=== PATIENT | male | born 2000 | race Two or more races ===

== ENCOUNTER 2019-04-06 16:19 | Emergency (ER) | payer SELFPAY ==
[~2019-04-06] VITALS: Ht 172.7 cm; Wt 68.0 kg
[2019-04-06] MEDS ORDERED: ETOMIDATE (2MG/ML) 20ML VIAL IV ONE (17:15)
[2019-04-06] MEDS ORDERED: ceFAZolin 1GM/50ML 50 ML IV ONE (19:00)
[2019-04-06 20:31] VITALS: BP 132/68
== END 2019-04-06 21:23 | disposition short-term general hospital (02) ==
LOC: EDBD 16:19 → ER 16:25
DX: S53.105A Unspecified dislocation of left ulnohumeral joint, initial encounter (principal); S52.92XB Unspecified fracture of left forearm, initial encounter for open fracture type I or II; V86.56XA Driver of dirt bike or motor/cross bike injured in nontraffic accident, initial encounter; Y93.89 Activity, other specified; Y99.8 Other external cause status; Y92.89 Other specified places as the place of occurrence of the external cause
CPT/HCPCS: 24600; 73030; 73060; 73090; 96365; 99152; 99285; J0690